=== PATIENT | female | born 1940 | race Caucasian/White ===

== ENCOUNTER → 2017-10-30 10:26 | Outpatient (CLI) | payer MEDICARE, OTHER, SELFPAY ==
--- NOTE | 2017-10-30 10:30 | BI_ITS ---
MAMMOGRAPHY - BILATERAL SCREENING 3-D ADRI SYNTHESIS REASON FOR EXAM: Female, 77 years old. Bilateral Screening 3-D tomosynthesis PERTINENT HISTORY: No significant family history. TECHNIQUE: 2-D mammograms and 3-D Adri synthesis of the breast (s) were performed. CAD was performed. COMPARISON: 10/01/2016 FINDINGS: The breast composition is composed of scattered fibroglandular density. Scattered benign calcifications are seen. No dense spiculated masses or suspicious microcalcifications are identified. No architectural distortion is identified. There is no skin thickening or retraction. There has been no significant change since the prior study. BI/SCREENING MAMM (CAD), BILAT IMPRESSION: No mammographic signs of malignancy. Routine yearly mammograms recommended. ASSESSMENT CATEGORY: BIRADS Category 2: Benign. A letter regarding these results will be sent to the patient by the facility within 30 days. FOLLOW UP RECOMMENDATION: Yearly follow up mammogram recommended. (A) Approximately 10% of breast cancers are not detected by mammography. A normal mammogram should not delay biopsy of a clinically suspicious abnormality. Electronically Signed: Adrien Marino MD at 12:19 EDT , Service support ,
--- NOTE | 2017-10-30 10:55 | BD_ITS ---
STUDY: DUAL ENERGY X-RAY ABSORPTIOMETRY / DXA REASON FOR EXAM: Female, 77 years old. Postmenopausal screening TECHNIQUE: Bone Mineral Density (BMD) measurements of lumbar spine and bilateral hips were obtained. COMPARISON: 2015 FINDINGS: Lumbar Spine (L1-L4): g/cm2 (1.194) / T-score (0.1) / Z-score (1.9) Findings are suggestive of normal bone density with a low fracture risk. Left Femur Total: g/cm2 (0.891) / T-score (-0.9) / Z-score (0.9) Left Femoral Neck: g/cm2 (0.883) / T-score (-1.1) / Z-score (0.9) Right Femur Total: g/cm2 (0.893) / T-score (-0.9) / Z-score (0.9) Right Femoral Neck: g/cm2 (0.878) / T-score (-1.2) / Z-score (0.8) The T-Scores on the most recent prior examination were: Lumbar Spine (L1-L4): There has been worsening of bone density since the previous examination. BD/Dexa Bone Density Study IMPRESSION: The patient is considered normal as outlined below according to World Marco Organization (WHO) criteria with a low fracture risk. There has been worsening of bone density since the previous examination. Reference Information: The T-score is the number of standard deviations above or below the standard which is normal for young adults at their peak bone mineral density. The World Health Organization (WHO) interprets the T-scores as follows: Above -1 Normal bone density Between -1 and -2.5 Osteopenia Equal to / or below -2.5 Osteoporosis As a practical clinical guideline, osteopenia may be graded as follows: Mild -1 through -1.5 Moderate -1.6 through -2.0 Severe -2.1 through -2.4 The Z-score is the number of standard deviations above or below age-matched controls. A Z-score of less than -1.5 would be considered abnormal. References: 1. NIH Osteoporosis and Related Bone Diseases http://www.osteo.org 2. International Society for Clinical Densitometry http://www.iscd.org 3. National Osteoporosis Foundation http://www.nof.org Electronically Signed: Adrien Marino MD at 9:55 EDT , Service support ,
== END ==
PROVIDERS: Family Provider Internal Medicine; PCP Internal Medicine; Visit Provider Internal Medicine
DX: Z12.31 Encounter for screening mammogram for malignant neoplasm of breast (principal); Z78.0 Asymptomatic menopausal state
CPT/HCPCS: 77063; 77067; 77080

== ENCOUNTER → 2018-11-21 07:06 | Outpatient (CLI) | payer MEDICARE, OTHER, SELFPAY ==
--- NOTE | 2018-11-21 07:09 | BI_ITS ---
MAMMOGRAPHY - BILATERAL SCREENING REASON FOR EXAM: Female, 78 years old. Routine annual screening examination. PERTINENT HISTORY: Non-contributory. TECHNIQUE: Digital bilateral breast adri (3D mammographic acquisition) in the CC and MLO projections. 2-D mediolateral oblique (MLO) and craniocaudad (CC) views of both breasts were obtained. CAD: Full Field Digital Mammography with Computer Added Detection was performed. COMPARISON: Comparison is made with prior examination dated October 30, 2017 and October 01, 2016 FINDINGS: Breast Composition: There are scattered areas of fibroglandular density. There are no dominant masses or suspicious calcifications. Stable small benign appearing bilateral axillary lymph nodes. No other significant abnormalities are identified. There has been no significant change since the prior study. BI/SCREEN MAMM (CAD) W/ADRI BILAT IMPRESSION: Stable bilateral screening mammogram. Yearly follow-up mammogram recommended. (A) ASSESSMENT CATEGORY: BIRADS Category 2: Benign. A letter regarding these results will be sent to the patient by the facility within 30 days. Approximately 10% of breast cancers are not detected by mammography. A normal mammogram should not delay biopsy of a clinically suspicious abnormality. [id number] Electronically Signed: Gary Green, at 9:29 EDT , Service support ,
== END ==
PROVIDERS: Family Provider Internal Medicine; PCP Internal Medicine; Referring Provider Internal Medicine; Visit Provider Internal Medicine
DX: Z12.31 Encounter for screening mammogram for malignant neoplasm of breast (principal)
CPT/HCPCS: 77063; 77067

== ENCOUNTER → 2019-12-17 12:27 | Outpatient (CLI) | payer MEDICARE, OTHER, SELFPAY ==
--- NOTE | 2019-12-17 12:31 | BI_ITS ---
MAMMOGRAPHY - BILATERAL SCREENING REASON FOR EXAM: Female, 79 years old. Routine annual screening examination. PERTINENT HISTORY: Non-contributory. TECHNIQUE: Digital bilateral breast adri (3D mammographic acquisition) in the CC and MLO projections. 2-D mediolateral oblique (MLO) and craniocaudad (CC) views of both breasts were obtained. CAD: Full Field Digital Mammography with Computer Added Detection was performed. COMPARISON: Comparison is made with prior examination dated 11/21/2018 and 10/30/2017. FINDINGS: Breast Composition: There are scattered areas of fibroglandular density. There are no dominant masses or suspicious calcifications. Stable small benign appearing bilateral axillary lymph nodes. No other significant abnormalities are identified. There has been no significant change since the prior study. BI/SCREEN MAMM (CAD) W/ADRI BILAT IMPRESSION: Stable bilateral screening mammogram. Yearly follow-up mammogram recommended. (A) ASSESSMENT CATEGORY: BIRADS Category 2: Benign. A letter regarding these results will be sent to the patient by the facility within 30 days. Approximately 10% of breast cancers are not detected by mammography. A normal mammogram should not delay biopsy of a clinically suspicious abnormality. [id number] Electronically Signed: Gary Green, at 13:44 EDT , Service support ,
--- NOTE | 2019-12-17 12:36 | BD_ITS ---
STUDY: DUAL ENERGY X-RAY ABSORPTIOMETRY / DXA REASON FOR EXAM: Female, 79 years old. 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 COMPARISON: Comparison is made with prior study dated 10/30/2017. FINDINGS: Lumbar Spine (L1-L4): g/cm2 (1.112) / T-score (-0.6) / Z-score (1.2) Findings are suggestive of normal bone density with a low fracture risk. Increased thoracic kyphosis. Left Femur Total: g/cm2 (0.813) / T-score (-1.5) / Z-score (0.4) Left Femoral Neck: g/cm2 (0.824) / T-score (-1.5) / Z-score (0.5) Right Femur Total: g/cm2 (0.836) / T-score (-1.4) / Z-score (0.6) Right Femoral Neck: g/cm2 (0.847) / T-score (-1.4) / Z-score (0.7) The T-Scores on the most recent prior examination were: Lumbar Spine (L1-L4): There has been worsening of bone density since the previous examination. Left Femur Total: which represents a worsening of 8.8%. Right Femur Total: which represents a worsening of 6.4%. BD/Dexa Bone Density Study IMPRESSION: The patient is considered osteopenic as outlined below according to World Marco Organization (WHO) criteria with a moderate fracture risk. There has been worsening of bone density since the previous examination. Reference Information: The T-score is the number of standard deviations above or below the standard which is normal for young adults at their peak bone mineral density. The World Health Organization (WHO) interprets the T-scores as follows: Above -1 Normal bone density Between -1 and -2.5 Osteopenia Equal to / or below -2.5 Osteoporosis As a practical clinical guideline, osteopenia may be graded as follows: Mild -1 through -1.5 Moderate -1.6 through -2.0 Severe -2.1 through -2.4 The Z-score is the number of standard deviations above or below age-matched controls. A Z-score of less than -1.5 would be considered abnormal. References: 1. NIH Osteoporosis and Related Bone Diseases http://www.osteo.org 2. International Society for Clinical Densitometry http://www.iscd.org 3. National Osteoporosis Foundation http://www.nof.org Electronically Signed: Gary Green, at 15:00 EDT , Service support ,
== END ==
PROVIDERS: PCP Internal Medicine; Referring Provider Internal Medicine; Visit Provider Internal Medicine
DX: Z12.31 Encounter for screening mammogram for malignant neoplasm of breast (principal); Z78.0 Asymptomatic menopausal state; M85.80 Other specified disorders of bone density and structure, unspecified site
CPT/HCPCS: 77063; 77067; 77080

== ENCOUNTER 2020-06-06 12:25 | Outpatient (RCR) | payer MEDICARE, OTHER, SELFPAY | END 2020-06-06 23:59 | LOC: IMMUN 12:25 | PROVIDERS: PCP Internal Medicine; Visit Provider Family Medicine | DX: Z23 Encounter for immunization (principal) | CPT/HCPCS: 0011A; 0012A ==

== ENCOUNTER → 2020-12-19 07:05 | Outpatient (CLI) | payer MEDICARE, OTHER, SELFPAY ==
--- NOTE | 2020-12-19 07:09 | BI_ITS ---
MAMMOGRAPHY - BILATERAL SCREENING REASON FOR EXAM: Female, 80 years old. Routine annual screening examination. PERTINENT HISTORY: Non-contributory. Chronic inversion of both nipples. TECHNIQUE: Digital bilateral breast adri (3D mammographic acquisition) in the CC and MLO projections. 2-D mediolateral oblique (MLO) and craniocaudad (CC) views of both breasts were obtained. CAD: Full Field Digital Mammography with Computer Added Detection was performed. COMPARISON: Comparison is made with prior study dated 12/17/2019 and 11/21/2018. FINDINGS: Breast Composition: There are scattered areas of fibroglandular density. There are no dominant masses or suspicious calcifications. No other significant abnormalities are identified. There has been no significant change since the prior study. BI/SCRN MAMM (CAD)W/ADRI BILAT IMPRESSION: Stable bilateral screening mammogram. Yearly follow-up mammogram recommended. (A) ASSESSMENT CATEGORY: BIRADS Category 1: Negative. A letter regarding these results will be sent to the patient by the facility within 30 days. Approximately 10% of breast cancers are not detected by mammography. A normal mammogram should not delay biopsy of a clinically suspicious abnormality. [id number] Electronically Signed: Gary Green MD at 9:00 EDT , Service support ,
== END ==
PROVIDERS: PCP Internal Medicine; Referring Provider Internal Medicine; Visit Provider Internal Medicine
DX: Z12.31 Encounter for screening mammogram for malignant neoplasm of breast (principal)
CPT/HCPCS: 77063; 77067

== ENCOUNTER → 2022-01-09 | Outpatient (CLI) | payer MEDICARE, OTHER, SELFPAY ==
--- NOTE | 2022-01-09 12:23 | BI_ITS ---
MAMMOGRAPHY - BILATERAL SCREENING REASON FOR EXAM: Female, 81 years old. Routine annual screening examination. PERTINENT HISTORY: Non-contributory. Chronic bilateral nipple inversion. TECHNIQUE: Digital bilateral breast adri (3D mammographic acquisition) in the CC and MLO projections. 2-D mediolateral oblique (MLO) and craniocaudad (CC) views of both breasts were obtained. CAD: Full Field Digital Mammography with Computer Added Detection was performed. COMPARISON: Comparison is made with prior study dated 12/19/2020 and 12/17/2019. FINDINGS: Breast Composition: There are scattered areas of fibroglandular density. There are no dominant masses or suspicious calcifications. No other significant abnormalities are identified. There has been no significant change since the prior study. BI/SCRN MAMM (CAD)W/ADRI BILAT IMPRESSION: Stable bilateral screening mammogram. Yearly follow-up mammogram recommended. (A) ASSESSMENT CATEGORY: BIRADS Category 1: Negative. A letter regarding these results will be sent to the patient by the facility within 30 days. Approximately 10% of breast cancers are not detected by mammography. A normal mammogram should not delay biopsy of a clinically suspicious abnormality. [id number] Electronically Signed: Gary Green MD at 13:33 EDT ,
--- NOTE | 2022-01-09 12:30 | BD_ITS ---
STUDY: DUAL ENERGY X-RAY ABSORPTIOMETRY / DXA REASON FOR EXAM: Female, 81 years old. [id number]. Patient is postmenopausal. TECHNIQUE: Bone Mineral Density (BMD) measurements of lumbar spine and bilateral hips were obtained. COMPARISON: Comparison is made with prior study 12/17/2019. FINDINGS: Lumbar Spine (L1-L4): g/cm2 (0.832) / T-score (-1.7) / Z-score (0.9) Findings are suggestive of osteopenia with a moderate fracture risk. Left Femur Total: g/cm2 (0.734) / T-score (-1.7) / Z-score (0.4) Left Femoral Neck: g/cm2 (0.672) / T-score (-1.6) / Z-score (0.7) Right Femur Total: g/cm2 (0.728) / T-score (-1.8) / Z-score (0.3) Right Femoral Neck: g/cm2 (0.632) / T-score (-2.0) / Z-score (0.4) The T-Scores on the most recent prior examination were: Lumbar Spine (L1-L4): There has been worsening of bone density since the previous examination. Left Femur Total: which represents a worsening of 2.4%. Right Femur Total: which represents a worsening of 6.1%. BD/Dexa Bone Density Study IMPRESSION: The patient is considered osteopenic as outlined below according to World Marco Organization (WHO) criteria with a moderate fracture risk. There has been worsening of bone density since the previous examination. Reference Information: The T-score is the number of standard deviations above or below the standard which is normal for young adults at their peak bone mineral density. The World Health Organization (WHO) interprets the T-scores as follows: Above -1 Normal bone density Between -1 and -2.5 Osteopenia Equal to / or below -2.5 Osteoporosis As a practical clinical guideline, osteopenia may be graded as follows: Mild -1 through -1.5 Moderate -1.6 through -2.0 Severe -2.1 through -2.4 The Z-score is the number of standard deviations above or below age-matched controls. A Z-score of less than -1.5 would be considered abnormal. References: 1. NIH Osteoporosis and Related Bone Diseases www osteo.org 2. International Society for Clinical Densitometry www iscd.org 3. National Osteoporosis Foundation www nof.org Electronically Signed: Gary Green MD at 10:37 EDT ,
== END | disposition home or self-care (01) ==
LOC: OPBD 12:20
PROVIDERS: PCP Internal Medicine; Visit Provider Internal Medicine
DX: Z12.31 Encounter for screening mammogram for malignant neoplasm of breast (principal); N64.59 Other signs and symptoms in breast; Z78.0 Asymptomatic menopausal state
CPT/HCPCS: 77063; 77067; 77080

== ENCOUNTER → 2022-06-04 | Outpatient (CLI) | payer MEDICARE, OTHER, SELFPAY ==
--- NOTE | 2022-06-04 07:48 | US_ITS ---
STUDY: ABDOMINAL ULTRASOUND - ELASTOGRAPHY REASON FOR VISIT: Female, 82 years old. Fatty infiltration of the liver. TECHNIQUE: Liver stiffness measurements were obtained on a [employer] [place] RS 85 ultrasound machine using a CA 1-7 probe following the SRU guidelines. 3 measurements were obtained using a 2-D-SWE method. The IQR/M was 23 % suggesting a quality data set. TECHNICAL QUALITY: Adequate. COMPARISON: None. FINDINGS: Liver: Comparison is made with prior study done earlier in the day. Median liver stiffness measured 6.4 kPa. US/Elastography Parenchyma/Organ IMPRESSION: Liver stiffness measures 6.4 kPa compatible with F2-F3 (Mild to moderate liver fibrosis) Metavir score. Electronically Signed: Gary Green MD at 14:28 EST ,
--- NOTE | 2022-06-04 07:48 | US_ITS ---
STUDY: ABDOMINAL ULTRASOUND - RIGHT UPPER QUADRANT REASON FOR VISIT: Female, 82 years old FATTY LIVER TECHNIQUE: Ultrasound evaluation of the right upper quadrant was performed with real-time and static fisher-scale imaging. TECHNICAL QUALITY: Adequate. COMPARISON: Comparison is made with prior study dated 11/05/2012. FINDINGS: Liver: The liver measures 11.1 cm. There is normal echogenicity of the liver. The bile ducts are within normal limits. There is hepatic color flow. The direction of portal flow is hepatopetal. There is a 7 mm x 8 mm x 10 mm cyst in the left lobe. Gallbladder: Normal distended gallbladder. The gallbladder wall measures 1.0 mm. There is a negative sonographic Arambula''s sign. There is no pericholecystic fluid. There are no gallstones. Common Bile Duct (C.B.D.): The common bile duct measures 2.1 mm. Pancreas: Normal size of the head, body and tail of the pancreas. There is normal echogenicity of the pancreas. There is no demonstrated pancreatic mass or cyst. Right Kidney: Normal size of the right kidney. The right kidney measures 8.6 cm x 4.1 cm x 4 cm. Normal renal cortex. The right cortex measures 1.2 cm. There is no demonstrated renal mass or cyst. There is no right hydronephrosis. US/Liver IMPRESSION: Normal right upper quadrant ultrasound examination. 8 mm x 10 mm x 7 mm cyst in the left lobe of the liver. Electronically Signed: Gary Green MD at 12:51 EST ,
== END | disposition home or self-care (01) ==
LOC: US 07:45
PROVIDERS: PCP Internal Medicine; Visit Provider Internal Medicine
DX: K76.0 Fatty (change of) liver, not elsewhere classified (principal)
CPT/HCPCS: 76705; 76981

== ENCOUNTER 2022-10-27 12:08 | Inpatient (IN) | payer MEDICARE, OTHER, SELFPAY ==
[2022-10-27] VITALS (7 sets, daily range): BP systolic 115–155; BP diastolic 67–86; PULSE 60–84; RESP 12–18; TEMP 36.2–36.8; O2SAT 96–99; BMI 24.5; BMI 23.1
--- NOTE | 2022-10-27 12:39 | EKG12_ITS ---
Test Reason : WEAKNESS/DIZZY Blood Pressure : / mmHG Vent. Rate : 070 BPM Atrial Rate : 070 BPM P-R Int : 160 ms QRS Dur : 076 ms QT Int : 416 ms P-R-T Axes : 048 -44 033 degrees QTc Int : 449 ms Normal sinus rhythm Left axis deviation Abnormal ECG Confirmed by BROOKE CORDERO, RICARDO ([id number]), editor trade journal AC ARREDONDO ([id number]) on 10/29/2022 12:32:38 PM Referred By: AMY/DEYVI Confirmed By:RICARDO COX MD
--- NOTE | 2022-10-27 12:39 | RAD_ITS ---
STUDY: X-RAY CHEST REASON FOR EXAM: Female, 82 years old. Chest pain TECHNIQUE: Single AP portable view of the chest. COMPARISON: None. FINDINGS: The lungs are clear and expanded. There is no demonstrated pleural abnormality. Normal size heart. Normal mediastinum and sharda. Normal visualized pulmonary arteries. Normal visualized aortic arch and descending thoracic aorta. There are diffuse degenerative changes of the visualized thoracic spine. Normal visualized ribs, clavicles, and shoulders. There is no demonstrated abnormality of the visualized soft tissue structures of the upper abdomen. RAD/Chest 1 View (Portable) IMPRESSION: No acute pulmonary process Electronically Signed: Adrien Marino MD at 13:45 EDT ,
--- NOTE | 2022-10-27 12:41 | EDS_ITS ---
HPI History of Present Illness Chief Complaint: Dizziness Informant: patient Narrative Narrative: Patient having episodes of lightheadedness for the past month or 2. She states she is having episodes every day. They are usually brief. When she feels lightheaded, she oftentimes feels like she is going to pass out, it makes her feel little out of breath, and weak all over. 2 weeks ago, she actually passed out from 1 of these episodes. She did not injure herself. This is all new for her. She has had a couple episodes of chest discomfort, she just describes them as a pain, they occurred at nighttime and the last time it occurred was a couple weeks ago, she does not usually have any other chest discomfort when these episodes occur. She has had an occasional discomfort into the right lateral neck with some of these episodes but no chest discomfort simultaneously. No leg pain or swelling recently. No orthopnea. No fevers, chills, cough, or other illness. No recent travel out of the area. No history of DVT or PE that she knows of. She takes blood pressure medication and she has no other medical issues. In the ER here today, this is the first time she is presented for medical care for any of this. [facility] Medical History (Updated 10/27/22 @ 14:[address] Ajay Bernabe MD) HTN (hypertension) Allergy/AdvReac Type Severity Reaction Status Date / Time No Known Allergies Allergy Verified 10/27/22 12:09 Social History Smoking Status: Never smoker [facility] ED Constitutional Constitutional ED: Reports weakness; Denies chills or fever(s) Eyes Eyes: Denies change in vision or diplopia ENT ENT ED: Denies rhinorrhea or sore throat Cardiovascular Cardiovascular: Reports lightheadedness and syncope; Denies chest pain, claudication, leg edema, orthopnea, orthostatic symptoms, palpitations or racing heartbeat Respiratory/Chest Respiratory/Chest: Reports dyspnea; Denies cough or orthopnea Gastrointestinal Gastrointestinal: Denies abdominal pain, diarrhea, nausea or vomiting Genitourinary Genitourinary ED: Denies dysuria or hematuria Musculoskeletal Musculoskeletal: Denies back pain or neck pain Integumentary Denies abscess or rash Neurologic Neurologic: Denies headache(s), paresthesias or weakness Psychiatric Psychiatric: Denies anxiety or suicidal thoughts EXAM Physical Exam Const Vital Signs: 10/27/22 12:09 10/27/22 12:49 10/27/22 15:00 Temperature 97.4 F L 97.2 F L Temperature Source Temporal Oral Pulse Rate 84 76 Respiratory Rate 12 15 Blood Pressure 154/86 H 139/71 H Blood Pressure Mean 108 93 Pulse Ox 98 97 96 Oxygen Delivery Method Room Air Room Air Room Air Positive well nourished and well developed General Appearance ED: well developed and NAD HEENT Reports moist mucous membranes normocephalic and atraumatic Eyes PERRL and EOMs intact bilaterally Neck full ROM, supple and no JVD Neck Narrative: No carotid bruits bilaterally Chest Wall inspection of chest normal and palpation of chest normal Resp normal respiratory effort and clear to auscultation bilaterally Cardio regular rate, regular rhythm and no murmurs Rate: Negative for bradycardia or tachycardic GI non-tender and non-distended Auscultation: normoactive bowel sounds Palpation: soft Back/Spine no CVA tenderness General Back: other FROM Extremity normal to inspection and no calf tenderness General Extremety ED: Negative for edema, pulses abnormal or tenderness General Extremity: Negative for edema or pulses abnormal Neuro oriented x3, CN's II-XII intact bilaterally and no sensory deficits noted Sensorium / Orientation: awake and alert Motor Exam: strength 5/5 throughout Skin no rashes or lesions noted and no wounds MDM MDM MDM Narrative Medical decision making narrative: Patient was placed on the monitor she had no episodes or symptoms while being monitored here in the emergency department. Her work-up is nonspecific, negative for acute coronary syndrome although she is a left axis and no old 1 to compare to, her D-dimer is 0.51, when adjusted for her age, this is basically negative and rules out pulmonary embolus acutely. Her TSH is within normal limits. Her vital signs are stable. I recommend admission since she is having frequent symptoms and has had syncopal episode with these for further evaluation on the monitor. My concern is that this is potentially cardiac specially given her age. Lab Data Attestation: I reviewed the patient's lab results. Labs: Laboratory Results - last 24 hr 10/27/22 13:06 WBC 2.4 L RBC 4.54 Hgb 13.6 Hct 41.6 MCV 91.6 MCH 30.0 MCHC 32.7 RDW Std Deviation 47.9 H RDW Coeff of Leatha 14.1 Plt Count 180 MPV 9.8 Immature Gran % (Auto) 0.000 Neut % (Auto) 43.3 L Lymph % (Auto) 44.7 H [place] % (Auto) 9.8 Eos % (Auto) 1.3 Baso % (Auto) 0.9 Absolute Neuts (auto) 1.0 L Absolute Lymphs (auto) 1.05 Nucleated RBC % 0 D-Dimer Quant (PE/DVT) 0.51 H* Sodium 140 Potassium 3.8 Chloride 108 H Carbon Dioxide 27.0 Anion Gap 5 BUN 14 Creatinine 0.92 Estim Creat Clear Calc 37.93 Est GFR (MDRD) Af Amer 76 Est GFR (MDRD) Non-Af 63 BUN/Creatinine Ratio 15.3 Glucose 99 Calcium 10.4 H Troponin I High Sens 31 TSH 2.74 Radiography Chest X-Ray - ED: 1 View, Read by ED Physician, No Acute Disease and No Infiltrates Diagnostic Testing: Clinical Impression(s) from Imaging Studies Chest X-Ray 10/27/22 12:39 IMPRESSION: No acute pulmonary process Electronically Signed: Adrien Marino MD at 13:45 EDT , Rhythm Strip Rhythm Strip: Sinus Rhythm Rate: 70 Ectopy: PVC(s) and PAC(s) EKG Initial EKG: Attestation: I personally reviewed and interpreted this EKG as follows: Interpretation: Sinus Rhythm, No Acute Injury Pattern and LAFB Prior EKG tracings: not available for review Prior: No Prior Management Discussion w/another healthcare provider: Hospitalist Discharge Plan Dx/Rx/DC Orders Clinical Impression: Near syncope Disposition Disposition: Acute Care [facility]
[2022-10-27] MEDS: Aspirin 81 MG TAB.CHEW 162 MG PO (13:15)
[2022-10-27 13:16] LABS: Absolute Lymphocyte Count 1.05 X10^3/uL (0.83-4.51); Basophil# 0.02 X10^3/uL; Basophil% 0.9 % (0-1); Eosinophil# 0.03 X10^3/uL; Eosinophils% 1.3 % (0-5); Hematocrit 41.6 % (37-47); Hemoglobin 13.6 g/dL (12.0-15.0); Lymphocyte # 1.05 X10^3/ul (0.83-4.51); Lymphocyte % 44.7 % (19-41); Mean Corp Hgb Conc 32.7 g/dL (32-36); Mean Corpuscular Volume 91.6 fL (81-99); Mean Platelet Vol. 9.8 fl (6.2-12.0); Monocyte# 0.23 X10^3/uL; Monocyte% 9.8 % (0-10); NRBC Flagged by Analyzer 0 % (0-5); Neutrophil # 1.02 X10^3/uL (2.7-7.7); Neutrophil % 43.3 % (47-70); Platelet Count 180 K/mm3 (150-450); RBC Distribution Width CV 14.1 % (11.6-14.6); RBC Distribution Width SD 47.9 fl (35.1-43.9); Red Blood Count 4.54 M/mm3 (4.2-5.4); White Blood Count 2.4 K/mm3 (4.4-11.0)
[2022-10-27 13:29] LABS: D-Dimer Quantitative (DVT/PE) 0.51 FEU/ug/m (0.27-0.49)
[2022-10-27 13:37] LABS: Anion Gap 5 (5-15); BUN 14 mg/dL (7-18); BUN/Creat Ratio 15.3 RATIO (10-20); Calcium,Total 10.4 mg/dL (8.5-10.1); Chloride 108 mmol/L (98-107); Creatinine, Serum 0.92 mg/dL (0.55-1.02); EST Glomerular Filtration Rate 63 mL/min (>60); Est Glom Filt Rate - Afr Amer 76 mL/min (>60); Estimated Creatinine Clearance 37.93 ml/min; Glucose 99 mg/dL (74-106); Potassium 3.8 mmol/L (3.5-5.1); Sodium Level 140 mmol/L (136-145); Thyroid Stim Hormone (TSH) 2.74 uIU/mL (0.358-3.74); Troponin-I HS 31 pg/mL (3.0-54.0)
--- NOTE | 2022-10-27 15:01 | NURSING ---
DR CHOU FOR DR REYES
--- NOTE | 2022-10-27 15:12 | NURSING ---
PCU SYNCOPE/NEAR SYNCOPE CHOU
--- NOTE | 2022-10-27 15:27 | PCM.HP.STD ---
HPI - General General Date of Admission: 10/27/22 Date of Service: 10/27/22 Chief Complaint: Presycnope/syncope HPI Narrative MOE STACY, is an 82-year-old female history of hypertension presented to [facility] 10/27/2022 with intermittent episodes of dizziness and lightheadedness for the past 2 months and has episodes every day. They are usually brief and she feels lightheaded and often like she is going to pass out and she will feel little bit out of breath and weak all over. 2 weeks ago she actually did have a syncopal episode from one of them, did not injure herself. Has had a couple episodes of chest discomfort that occurred at nighttime with last episode a couple weeks ago and are not associated with these episodes. Occasionally she will have some right lateral neck discomfort but this also was not associated with either the chest pain or the dizzy episodes. No history of DVT or PE, no leg pain or swelling, no infectious signs or symptoms. EKG in ED nonspecific, troponin 31, TSH 2.74. Creatinine 0.92, unclear baseline but no reports of difficulty maintaining hydration. Did have calcium of 10.4 but otherwise work-up benign. Given the frequency of episodes with syncopal episode and concern for cardiac etiology hospitalist consulted for admission. Patient seen at bedside with present. Patient very poor historian and gives contradictory symptoms and symptom timing however essentially seems that she has not been feeling well for 2 months and has intermittent episodes of presyncope the last minutes possibly multiple episodes throughout the day, she thinks they are usually when standing but she cannot say definitively. Had a syncopal episode 2 weeks ago when she was talking with her friend in the hot sun and she reports she had a prodrome felt lightheaded and then woke up shortly after with her friend taking her inside to eat. She also reports she has had a dry hacking cough for many months and had a stomachache for 1 day a week or 2 ago. Also possibly had some chest pain that she could not describe in the center of her chest which may have happened a couple weeks ago for said it was like an aching and then said it felt like somebody lightly stabbed her with a needle and will just happen for a second at a time but is not having this presently. Also later said she intermittently gets nauseous. Patient unable to be any more specific with her symptoms. Denies taking any substances or supplements other than a B complex. [facility] Medical History (Updated 10/27/22 @ 15:[address] Kamla Banuelos MD) HTN (hypertension) Home Medications amlodipine 5 mg tablet 5 mg PO DAILY 10/27/22 [History Last Taken 10/27/22] losartan 100 mg tablet 100 mg PO DAILY 10/27/22 [History Last Taken 10/27/22] Allergy/AdvReac Type Severity Reaction Status Date / Time No Known Allergies Allergy Verified 10/27/22 12:09 Social History Smoking Status: Never smoker ROS ROS Narrative General: Denies fever/chills HENT: Denies headache, denies stuffy nose, denies sore throat EYES: Denies changes in vision Resp: Has had a cough over period of months, denies shortness of breath Cardiac: Has possibly had a couple episodes of chest pain occasionally most recently couple weeks ago GI: Intermittent nausea, 1 episode of abdominal pain a couple weeks ago : Frequently urinates but denies any other changes Extremity: Denies swelling MSK: Feels generally weak Neuro: Denies any numbness/tingling Heme: Denies any bleeding or bruising Skin: Denies rashes Psychiatric: No complaints voiced Vital Signs Vital Signs Vital Signs: 10/27/22 12:09 10/27/22 12:49 10/27/22 15:00 Temperature 97.4 F L 97.2 F L Temperature Source Temporal Oral Pulse Rate 84 76 Respiratory Rate 12 15 Blood Pressure 154/86 H 139/71 H Blood Pressure Mean 108 93 Pulse Ox 98 97 96 Oxygen Delivery Method Room Air Room Air Room Air 10/27/22 15:06 Temperature 97.6 F L Temperature Source Temporal Pulse Rate 60 Respiratory Rate 16 Blood Pressure 139/71 H Blood Pressure Mean 93 Pulse Ox 97 Oxygen Delivery Method Room Air Weight Weight: 60.963 kg Body Mass Index (BMI) 24.5 Physical Exam Narrative General: Alert, no apparent distress, poor historian HEENT: Atraumatic, normocephalic Eyes: Anicteric, normal conjunctiva, extraocular movements grossly intact Neck: Supple Respiratory: Clear to auscultation bilaterally, normal respiratory effort Cardiovascular: Regular rate and rhythm GI: Soft, nontender, nondistended Extremities: No edema Musculoskeletal: Moving all extremities Neuro: No overt focal neurological deficits Skin: No rashes appreciated Psych: Cooperative Results Lab / Micro Data 10/27/22 13:06 10/27/22 13:06 Labs: Laboratory Results - last 24 hr 10/27/22 13:06: WBC 2.4 L, RBC 4.54, Hgb 13.6, Hct 41.6, MCV 91.6, MCH 30.0, MCHC 32.7, RDW Std Deviation 47.9 H, RDW Coeff of Leatha 14.1, Plt Count 180, MPV 9.8, Immature Gran % (Auto) 0.000, Neut % (Auto) 43.3 L, Lymph % (Auto) 44.7 H, [place] % (Auto) 9.8, Eos % (Auto) 1.3, Baso % (Auto) 0.9, Absolute Neuts (auto) 1.0 L, Absolute Lymphs (auto) 1.05, Nucleated RBC % 0, D-Dimer Quant (PE/DVT) 0.51 H*, Sodium 140, Potassium 3.8, Chloride 108 H, Carbon Dioxide 27.0, Anion Gap 5, BUN 14, Creatinine 0.92, Estim Creat Clear Calc 37.93, Est GFR (MDRD) Af Amer 76, Est GFR (MDRD) Non-Af 63, BUN/Creatinine Ratio 15.3, Glucose 99, Calcium 10.4 H, Troponin I High Sens 31, TSH 2.74 Rhythm Strip Rhythm Strip: Sinus Rhythm Rate: 70 Ectopy: PVC(s) and PAC(s) Radiology Impression Chest X-Ray 10/27/22 12:39 IMPRESSION: No acute pulmonary process Electronically Signed: Adrien Marino MD at 13:45 EDT , Assessment & Plan Assessment/Plan (1) Near syncope: (2) HTN (hypertension): (3) Syncope: PLAN: Plan #Syncope/near syncope- -admit to telemetry -EKG normal sinus rhythm, QTc 449 with left axis deviation -Orthostats ordered -Gentle hydration -Obtain echocardiogram -Troponin within normal limits, D-dimer 0.51 which is appropriate when adjusted for age -TSH 2.74 with a troponin of 31 -We will also obtain CT head and UA -Patient belatedly reported occasional dressed discomfort but had very difficult time with timeline or symptom description however did not sound worrisome for ACS and not presently having symptoms, monitor on telemetry #History of hypertension -We will hold amlodipine and losartan pending orthostats and clinical status #Hypercalcemia -Certainly could be cause of some of the vague symptoms -Calcium 10.4, will order liver panel and adjust this for albumin -PTH, vitamin D, Phos ordered -Gentle hydration #DVT ppx: Lovenox subcu Kamla Banuelos MD Time spent in the patient's overall evaluation,decision-making process, review of diagnostic data, adjustment of management, discussion with other providers, nursing nursing and ancillary staff involved in patient's care documentation, 56 minutes Charges/Coding Visit Charges Inpatient E&M: 71653 Init Hosp L2
--- NOTE | 2022-10-27 15:52 | CT_ITS ---
STUDY: CT BRAIN WITHOUT CONTRAST REASON FOR EXAM: Female, 82 years old. syncope, dizziness RADIATION DOSAGE (If Supplied By Facility): CTDIvol = ( 44.99 ) mGy, DLP = ( 745.49 ) mGycm TECHNIQUE: Transaxial CT imaging of the brain was performed without administration of intravenous contrast material. Individualized dose optimization techniques were used for this CT. COMPARISON: No relevant priors. FINDINGS: Normal soft tissue structures. Normal calvarium. Normal size ventricles and extra-axial spaces for the patient''s age. Normal white matter tracts of the cerebral hemispheres. Normal basal ganglia and thalami. Normal brainstem. Normal cerebellum. There is no intracranial hemorrhage. There are no findings of an acute ischemic infarction. Normal visualized paranasal sinuses. CT/Brain/Head without Contrast IMPRESSION: Normal unenhanced CT scan of the brain. Electronically Signed: Javier Greer MD at 17:40 EDT ,
--- NOTE | 2022-10-27 15:52 | ECHOD_ITS ---
Reason For Study: SYNCOPE Procedure This was a 2D Doppler, Color Flow transthoracic echocardiogram. Exam performed portable in patient room. Left Ventricle Normal LV size. Left ventricular systolic function is normal. The estimated ejection fraction is 60 %. Stage 1 diastolic dysfunction. No regional wall motion abnormalities noted. Right Ventricle Normal RV size. Normal systolic function. Atria Normal left atrium. Normal right atrium. Mitral Valve Normal mitral valve. Tricuspid Valve Normal tricuspid valve. Mild (1+) tricuspid valve insufficiency. Pulmonary artery systolic pressure is 36 mmHg. Aortic Valve Normal aortic valve. Pulmonic Valve Normal pulmonic valve. Great Vessels Normal aortic root. The pulmonary artery is normal size. Normal inferior vena cava. Pericardium/Pleural No pericardial effusion. MMode/2D Measurements & Calculations LVIDd: 4.6 cm IVSd: 0.83 cm Ao root diam: 2.8 cm LVIDs: 3.6 cm LVPWd: 0.79 cm RVDd: 2.5 cm FS: 23.3 % LAV(MOD-bp): 40.9 ml LVAd ap4: 23.2 cm2 SV(MOD-sp4): 37.1 ml LAV(MOD-bp) Indexed: 25.4 ml/m2 LVLd ap4: 6.7 cm LAV(MOD-sp2): 43.0 ml EDV(MOD-sp4): 67.9 ml LAV(MOD-sp4): 32.0 ml EDV(sp4-el): 68.2 ml LVAs ap4: 14.1 cm2 LVLs ap4: 5.8 cm ESV(MOD-sp4): 30.8 ml ESV(sp4-el): 29.0 ml EF(MOD-sp4): 54.6 % EF(sp4-el): 57.4 % SV(sp4-el): 39.1 ml LA A4 area: 14.2 cm2 LA dimension(2D): 2.7 cm RA A4 area: 10.3 cm2 TAPSE: 1.4 cm Time Measurements MV dec time: 0.23 sec Doppler Measurements & Calculations MV E max zackery: 75.5 cm/sec Lat Peak E' Zackery: 10.2 cm/sec Med Peak E' Zackery: 8.9 cm/sec MV A max zackery: 104.6 cm/sec E/E' lat: 7.4 E/E' med: 8.5 MV E/A: 0.72 MV V2 max: 119.5 cm/sec Ao V2 max: 126.3 cm/sec MV max P.7 mmHg MV dec slope: 338.9 cm/sec2 Ao max P.4 mmHg MV V2 mean: 70.1 cm/sec Ao V2 mean: 84.3 cm/sec MV mean P.2 mmHg Ao mean P.3 mmHg MV V2 VTI: 36.8 cm Ao V2 VTI: 31.1 cm AV (velocity ratio): 0.83 LV V1 max: 94.8 cm/sec MR max zackery: 413.2 cm/sec TR max zackery: 286.9 cm/sec LV V1 max P.6 mmHg MR max P.3 mmHg TR max P.9 mmHg LV V1 mean P.2 mmHg LV V1 mean: 70.5 cm/sec LV V1 VTI: 25.8 cm ECHO/Echo Complete Interpretation Summary Normal LV size. Left ventricular systolic function is normal. The estimated ejection fraction is 60 %. Stage 1 diastolic dysfunction. Pulmonary artery systolic pressure is 36 mmHg. Ordering Physician: Kamla Banuelos Referring Physician: Breanna David M.D. Performed By: Noa Tabor RCS
[2022-10-27] MEDS: 0.9% Normal Saline 1,000 ML 75 ML IV (17:56)
[2022-10-27 18:02] LABS: PTHIN 129.6 pg/mL (18.4-80.1)
[2022-10-27 20:22] LABS: Bacteria 0 SEEN /hpf (None Seen); Mucous, Urine 0 SEEN /hpf (<or=2+); Red Blood Cells-Urine 0 SEEN /hpf (0-5); Squamous Epithelial Cells - UA 0 SEEN /hpf (5-10); White Blood Cells 0 SEEN /hpf (0-5)
[2022-10-27 20:26] LABS: Color, Urine Yellow (Yellow); Glucose, Dipstick Normal (Normal); Ketone-Dipstick 5 mg/dl (Negative); Leukocyte Esterase-Dipstick Negative /ul (Negative); Nitrite-Dipstick Negative (Negative); Occult Blood-Urine Negative /ul (Negative); Protein-Dipstick Negative (Negative); Urine Bilirubin Dipstick Negative (Negative); Urine Clarity Clear (Clear); Urine Urobilinogen Normal (Normal)
[2022-10-28 03:28] VITALS: BP 112/56; PULSE 61; RESP 16; TEMP 36.6; O2SAT 98
[2022-10-28 06:16] LABS: Absolute Lymphocyte Count 1.21 X10^3/uL (0.83-4.51); Basophil# 0.02 X10^3/uL; Basophil% 0.8 % (0-1); Eosinophil# 0.05 X10^3/uL; Hematocrit 39.3 % (37-47); Lymphocyte # 1.21 X10^3/ul (0.83-4.51); Lymphocyte % 47.5 % (19-41); Mean Corp Hgb Conc 33.1 g/dL (32-36); Mean Corpuscular Hgb 30.4 pg (27.0-32.0); Mean Corpuscular Volume 91.8 fL (81-99); Mean Platelet Vol. 10.3 fl (6.2-12.0); Monocyte% 11.8 % (0-10); NRBC Flagged by Analyzer 0 % (0-5); Neutrophil # 0.97 X10^3/uL (2.7-7.7); Neutrophil % 37.9 % (47-70); POSITIVE DIFFERENTIAL YES; Platelet Count 166 K/mm3 (150-450); RBC Distribution Width CV 14.1 % (11.6-14.6); RBC Distribution Width SD 47.9 fl (35.1-43.9); Red Blood Count 4.28 M/mm3 (4.2-5.4); White Blood Count 2.6 K/mm3 (4.4-11.0)
[2022-10-28 06:19] LABS: Differential Indicated SCAN CRITERIA MET
[2022-10-28 06:27] LABS: International Normalized Ratio 0.9; Prothrombin Time (Protime)PT. 12.2 SECONDS (11.7-14.9)
[2022-10-28 06:44] LABS: ALB/GLOB Ratio 1.1 RATIO (0.9-2.4); AST(SGOT) 18 U/L (15-37); Alanine Aminotransfer ALT/SGPT 22 U/L (13-56); Albumin, Serum 3.2 g/dL (3.2-5.0); Alkaline Phosphatase 94 U/L (45-117); Anion Gap 4 (5-15); BUN 15 mg/dL (7-18); BUN/Creat Ratio 20.2 RATIO (10-20); Bilirubin, Direct 0.13 mg/dL (0.00-0.30); Calcium,Total 9.8 mg/dL (8.5-10.1); Chloride 112 mmol/L (98-107); Creatinine, Serum 0.74 mg/dL (0.55-1.02); EST Glomerular Filtration Rate 80 mL/min (>60); Est Glom Filt Rate - Afr Amer 97 mL/min (>60); Glucose 90 mg/dL (74-106); Magnesium 2.3 mg/dL (1.6-2.6); Phosphorus 2.6 mg/dL (2.5-4.9); Potassium 3.9 mmol/L (3.5-5.1); Protein, Total 6.2 g/dL (6.4-8.2); Sodium Level 142 mmol/L (136-145)
--- NOTE | 2022-10-28 09:03 | PN.HOSP_ITS ---
Reason for Visit Reason for Visit: Diagnoses Essential (primary) hypertension (10/27/22) Syncope and collapse (10/27/22) Subjective Subjective Patient symptomatic with orthostatics obtained, will repeat orthostats now that patient had some hydration, denies chest pain or shortness of breath Objective Data Objective Data Vital Signs: Vital Signs Temp Pulse Resp BP Pulse Ox O2 Del Method 97.9 F 61 16 112/56 L 98 Room Air 10/28/22 03:28 10/28/22 03:28 10/28/22 03:28 10/28/22 03:28 10/28/22 03:28 10/28/22 03:28 Oxygen Delivery Method Room Air Weight: 59.4 kg Body Mass Index (BMI) 23.1 Intake & Output: Intake and Output for Last 24 Hours 10/26/22 10/27/22 10/28/22 23:59 23:59 23:59 Intake Total 572.5 / 572.5 Balance 572.5 / 572.5 Lab / Micro Data 10/28/22 05:30 10/28/22 05:30 Labs: Laboratory Results - last 24 hr 10/27/22 13:06: WBC 2.4 L, RBC 4.54, Hgb 13.6, Hct 41.6, MCV 91.6, MCH 30.0, MCHC 32.7, RDW Std Deviation 47.9 H, RDW Coeff of Leatha 14.1, Plt Count 180, MPV 9.8, Immature Gran % (Auto) 0.000, Neut % (Auto) 43.3 L, Lymph % (Auto) 44.7 H, [place] % (Auto) 9.8, Eos % (Auto) 1.3, Baso % (Auto) 0.9, Absolute Neuts (auto) 1.0 L, Absolute Lymphs (auto) 1.05, Nucleated RBC % 0, D-Dimer Quant (PE/DVT) 0.51 H*, Sodium 140, Potassium 3.8, Chloride 108 H, Carbon Dioxide 27.0, Anion Gap 5, BUN 14, Creatinine 0.92, Estim Creat Clear Calc 37.93, Est GFR (MDRD) Af Amer 76, Est GFR (MDRD) Non-Af 63, BUN/Creatinine Ratio 15.3, Glucose 99, Calcium 10.4 H, Troponin I High Sens 31, B-Natriuretic Peptide 22.0, Folate 16.20, TSH 2.74, PTH Intact 129.6 H 10/27/22 19:37: Urine Color Yellow, Urine Clarity Clear, Urine pH 7.0, Ur Spec ific [place] 1.010, Urine Protein Negative, Urine Glucose (UA) Normal, Urine Ketones 5 H, Urine Occult Blood Negative, Urine Nitrite Negative, Urine Bilirubin Negative, Urine Urobilinogen Normal, Ur Leukocyte Esterase Negative, Urine RBC 0 SEEN, Urine WBC 0 SEEN, Ur Squamous Epith Cells 0 SEEN, Urine Bacteria 0 SEEN, Urine Mucus 0 SEEN 10/28/22 05:30: WBC 2.6 L, RBC 4.28, Hgb 13.0, Hct 39.3, MCV 91.8, MCH 30.4, MCHC 33.1, RDW Std Deviation 47.9 H, RDW Coeff of Leatha 14.1, Plt Count 166, MPV 10.3, Immature Gran % (Auto) 0.000, Neut % (Auto) 37.9 L, Lymph % (Auto) 47.5 H, [place] % (Auto) 11.8 H, Eos % (Auto) 2.0, Baso % (Auto) 0.8, Absolute Neuts (auto) 1.0 L, Absolute Lymphs (auto) 1.21, Nucleated RBC % 0, Diff Path Review August, PT 12.2, INR 0.9, Sodium 142, Potassium 3.9, Chloride 112 H, Carbon Dioxide 26.0, Anion Gap 4 L, BUN 15, Creatinine 0.74, Estim Creat Clear Calc 36.50, Est GFR (MDRD) Af Amer 97, Est GFR (MDRD) Non-Af 80, BUN/Creatinine Ratio 20.2 H, Glucose 90, Calcium 9.8, Phosphorus 2.6, Magnesium 2.3, Total Bilirubin 0.50, Direct Bilirubin 0.13, AST 18, ALT 22, Alkaline Phosphatase 94, Total Protein 6.2 L, Albumin 3.2, Globulin 3.0, Albumin/Globulin Ratio 1.1 Radiography Diagnostic Testing: Radiology Impression Chest X-Ray 10/27/22 12:39 IMPRESSION: No acute pulmonary process Electronically Signed: Adrien Marino MD at 13:45 EDT Reading Location ID and State: [facility] / [place] , Service support , Brain CT 10/27/22 15:52 IMPRESSION: Normal unenhanced CT scan of the brain. Electronically Signed: Javier Greer MD at 17:40 EDT , Rhythm Strip Rhythm Strip: Sinus Rhythm Rate: 70 Ectopy: PVC(s) and PAC(s) Physical Exam Narrative General: Alert, no apparent distress, poor historian HEENT: Atraumatic, normocephalic Eyes: Anicteric, normal conjunctiva, extraocular movements grossly intact Neck: Supple Respiratory: Clear to auscultation bilaterally, normal respiratory effort Cardiovascular: Regular rate and rhythm GI: Soft, nontender, nondistended Extremities: No edema Musculoskeletal: Moving all extremities Neuro: No overt focal neurological deficits Skin: No rashes appreciated Psych: Cooperative Assessment & Plan Assessment/Plan (1) Near syncope: (2) HTN (hypertension): (3) Syncope: PLAN: Plan #Syncope/near syncope- -admit to telemetry -EKG normal sinus rhythm, QTc 449 with left axis deviation -Orthostats ordered -Gentle hydration -Obtain echocardiogram -Troponin within normal limits, D-dimer 0.51 which is appropriate when adjusted for age -TSH 2.74 with a troponin of 31 -We will also obtain CT head and UA -Patient belatedly reported occasional dressed discomfort but had very difficult time with timeline or symptom description however did not sound worrisome for A CS and not presently having symptoms, monitor on telemetry -10/28: Positive orthostatic vital signs with blood pressure 155/67 while laying and 125/85 while standing and patient had symptoms of dizziness. Heart rate went from 65 up to 80. Patient's blood pressure medications remain on hold. UA negative. Patient received IVF overnight, will repeat orthostatics this a.m. Calcium improved with hydration. TSH 2.74, folate within normal limits. Will check AM cortisol. Also still awaiting echocardiogram #History of hypertension -We will hold amlodipine and losartan pending orthostats and clinical status -10/28: Positive orthostats as above, received fluids, hold hypertensives. Echocardiogram is ordered #Hypercalcemia -Certainly could be cause of some of the vague symptoms -Calcium 10.4, will order liver panel and adjust this for albumin -PTH, vitamin D, Phos ordered -Gentle hydration -10/28: Corrected calcium yesterday if taken to account patient's albumin today was 11 and with hydration is 10.4 based on a normal albumin of 4. PTH is elevated at 129.6. Thyroid function within normal limits, patient not on thiazide at home. Patient has had the problems with some abdominal pain, n ausea, constipation as well as fatigue and weakness which may indicate symptomatic hypercalcemia in patients can be symptomatic even at somewhat lower levels of hypercalcemia. Patient likely has CKD based on age and weight in comparison to creatinine even with that being less than 1 however not sure this would account for presentation/do not think this is CKD related and more likely primary hyperparathyroidism. Cannot rule out adrenal insufficiency however given her orthostatic hypotension's we will check cortisol in the a.m. Also check a random urine calcium. May ultimately need 24-hour urine calcium but this may not need to be done on an inpatient basis if patient stabilizes. Phos is lower limit of normal. And vitamin D was checked. #DVT ppx: Lovenox subcu Kamla Banuelos MD Time spent in the patient's overall evaluation,decision-making process, review of diagnostic data, adjustment of management, discussion with other providers, nursing nursing and ancillary staff involved in patient's care documentation, 51 minutes Charges/Coding Visit Charges Inpatient E&M: 27133 Subs Hosp L3
[2022-10-28 09:25] VITALS: BP 115/71; PULSE 70; RESP 16; TEMP 35.9; O2SAT 97
[2022-10-28] MEDS: 0.9% Saline Lock 10 ML Syringe IV (09:26)
[2022-10-28] MEDS: Enoxaparin 40 MG/0.4 ML Syringe SC (09:27)
[2022-10-28 09:45] VITALS: BP 103/61; BP 125/68; BP 141/62; PULSE 68; PULSE 72; PULSE 75
[2022-10-28] MEDS: 0.9% Normal Saline 1,000 ML 75 ML IV (10:00)
[2022-10-28 12:26] LABS: Urea Nitrogen, Urine 136 mg/dL (NO RANGE EST.); Urine Chloride 51 mmol/L (Not Establ.); Urine Sodium 54 mmol/L (Not Establ.)
[2022-10-28 12:29] LABS: Calcium, Urine (Random) 7.1 mg/dL (Not Estab.)
[2022-10-28 12:35] LABS: Osmolality, Urine 185 mOsm/KG
[2022-10-28 15:25] VITALS: BP 113/74; PULSE 67; RESP 16; TEMP 36.2; O2SAT 99
[2022-10-28 21:25] VITALS: BP 118/56; PULSE 74; RESP 16; TEMP 36.8; O2SAT 99
[2022-10-29] MEDS: 0.9% Normal Saline 1,000 ML 75 ML IV (02:43)
[2022-10-29 04:15] VITALS: BP 117/61; PULSE 66; RESP 16; TEMP 36.7; O2SAT 98
[2022-10-29 05:47] LABS: Absolute Lymphocyte Count 1.31 X10^3/uL (0.83-4.51); Absolute Neutrophil Count 1.6 X10^3/uL (2.0-7.7); Basophil# 0.02 X10^3/uL; Basophil% 0.6 % (0-1); Eosinophil# 0.04 X10^3/uL; Eosinophils% 1.2 % (0-5); Hematocrit 38.2 % (37-47); Hemoglobin 12.7 g/dL (12.0-15.0); Lymphocyte # 1.31 X10^3/ul (0.83-4.51); Mean Corp Hgb Conc 33.2 g/dL (32-36); Mean Corpuscular Hgb 30.6 pg (27.0-32.0); Mean Platelet Vol. 10.1 fl (6.2-12.0); Monocyte# 0.37 X10^3/uL; NRBC Flagged by Analyzer 0 % (0-5); Neutrophil # 1.61 X10^3/uL (2.7-7.7); Neutrophil % 47.9 % (47-70); Platelet Count 170 K/mm3 (150-450); RBC Distribution Width CV 14.1 % (11.6-14.6); RBC Distribution Width SD 48.3 fl (35.1-43.9); Red Blood Count 4.15 M/mm3 (4.2-5.4); White Blood Count 3.4 K/mm3 (4.4-11.0)
[2022-10-29 06:44] LABS: AST(SGOT) 17 U/L (15-37); Alanine Aminotransfer ALT/SGPT 18 U/L (13-56); Albumin, Serum 2.9 g/dL (3.2-5.0); Alkaline Phosphatase 83 U/L (45-117); Anion Gap 4 (5-15); BUN 15 mg/dL (7-18); BUN/Creat Ratio 21.5 RATIO (10-20); Calcium,Total 9.5 mg/dL (8.5-10.1); Chloride 114 mmol/L (98-107); EST Glomerular Filtration Rate 85 mL/min (>60); Est Glom Filt Rate - Afr Amer 103 mL/min (>60); Globulin 2.8 g/dL (2.2-4.2); Glucose 92 mg/dL (74-106); Potassium 3.8 mmol/L (3.5-5.1); Protein, Total 5.7 g/dL (6.4-8.2); Sodium Level 142 mmol/L (136-145)
[2022-10-29 06:52] VITALS: BP 135/58; PULSE 62; RESP 16; TEMP 36.9; O2SAT 95
--- NOTE | 2022-10-29 07:30 | PN.HOSP_ITS ---
Reason for Visit Reason for Visit: Diagnoses Essential (primary) hypertension (10/28/22) Syncope and collapse (10/28/22) Subjective Subjective Patient with no acute events overnight per self and per nursing report. She notes feeling markedly improved since initial ED arrival and denies any lightheadedness or dizziness and has been up without needing assistance. Discussed current work-up which including awaiting echocardiogram, unremarkable CT of the head, stable labs, normalized calcium and normal a.m. cortisol level fortunately. Discussed plan for repeat orthostatics which were performed and notably improved with plan for continued holding her hypertensive regimen as she has noted continued near syncopal/dizziness symptoms specifically following her hypertensive regimen and has felt improved if she skipped these. Discussed plan for close outpatient follow-up with repeat blood pressure assessments and resumption if appropriate and potentially lower dosing at that time if necessary. Patient denies fevers, chills, nausea, emesis, abdominal pain, chest pain or dyspnea. Objective Data Objective Data Vital Signs: Vital Signs Temp Pulse Resp BP Pulse Ox O2 Del Method 98.5 F 62 16 135/58 H 95 Room Air 10/29/22 06:52 10/29/22 06:52 10/29/22 06:52 10/29/22 06:52 10/29/22 06:52 10/29/22 06:52 Oxygen Delivery Method Room Air Weight: 130 lb 15.273 oz Body Mass Index (BMI) 23.1 Intake & Output: Intake and Output for Last 24 Hours 10/27/22 10/28/22 10/29/22 23:59 23:59 23:59 Intake Total 2532.5 / 2782.5 325 / 325 Balance 2532.5 / 2782.5 325 / 325 Lab / Micro Data 10/29/22 05:19 10/29/22 05:19 Labs: Laboratory Results - last 24 hr 10/28/22 11:35: Urine Osmolality 185, Ur Random Sodium 54, Ur Random Calcium 7.1, Urine Creatinine 15.50, Urine Potassium 14.0, Urine Chloride 51, Urine Urea Nitrogen 136 10/29/22 05:19: WBC 3.4 L, RBC 4.15 L, Hgb 12.7, Hct 38.2, MCV 92.0, MCH 30.6, MCHC 33.2, RDW Std Deviation 48.3 H, RDW Coeff of Leatha 14.1, Plt Count 170, MPV 10.1, Immature Gran % (Auto) 0.300, Neut % (Auto) 47.9, Lymph % (Auto) 39.0, [place] % (Auto) 11.0 H, Eos % (Auto) 1.2, Baso % (Auto) 0.6, Absolute Neuts (auto) 1.6 L, Absolute Lymphs (auto) 1.31, Nucleated RBC % 0, Sodium 142, Potassium 3.8, Chloride 114 H, Carbon Dioxide 24.0, Anion Gap 4 L, BUN 15, Creatinine 0.7 0, Estim Creat Clear Calc 36.50, Est GFR (MDRD) Af Amer 103, Est GFR (MDRD) Non- Af 85, BUN/Creatinine Ratio 21.5 H, Glucose 92, Calcium 9.5, Total Bilirubin 0.50, AST 17, ALT 18, Alkaline Phosphatase 83, Total Protein 5.7 L, Albumin 2.9 L, Globulin 2.8, Albumin/Globulin Ratio 1.0 Rhythm Strip Rhythm Strip: Sinus Rhythm Rate: 70 Ectopy: PVC(s) and PAC(s) Physical Exam Narrative Physical Examination: General: Awake, alert, oriented x 3 and cooperative, seated upright in PCU bed in no apparent distress, notes feeling well and denies any lightheadedness or dizziness sensation. Skin: Normal color, normal turgor, no icterus, no cyanosis. HEENT: AT/NC, EOMI, PERRLA, MMM. Lungs: CTA bilaterally, moderate effort, mild decrease BL bases, no rales, ronchi or wheezing. Heart: Regular rate and rhythm; no gallop, rub audible. Abdomen: Soft, NTTP, ND, normal BS. Extremities: No cyanosis, clubbing, or edema. Neurological: Patient awake, alert, oriented as noted, cognitive function intact; pupils equally reactive to light and accommodation, cranial nerves II- XII grossly normal, moving all 4 extremities, no focal deficits, strength preserved. Psychiatric: Affect appears normal, no acute evidence of depressive or anxiety feelings. Assessment & Plan Assessment/Plan (1) Syncope: PLAN: Plan The patient is an 82 y/o F w/ PMHx: HTH who presents to [facility] ED [facility] 10/27/22 with intermittent episodes of dizziness and lightheadedness over the last 2 months with associated syncopal event prompting eventual ED evaluation. #1. Intermittent near syncope and syncopal event with orthostasis: Admitted to telemetry, EKG with sinus rhythm with QTc 449 with left axis deviation, judiciously hydrated with orthostatics monitor, echocardiogram requested, troponin level normal, D-dimer 0.51 normal for age adjustment, TSH 2.74, CT of head with no acute intracranial findings, chest x-ray with no acute cardiopulmonary finding, no marked electrolyte disturbances, urine osmolality 185, urine random sodium 54, urine random calcium 7.1, urine creatinine 15.50, urine potassium 14, urine chloride 51, urine urea nitrogen 136, maintain on fall precautions. Orthostatics last + 10/29/2019 3 AM, 10/30/2019 3 repeat this a.m improving with continued hold on hypertensive regimen. Patient has admitted that she has held these occasionally secondary to symptoms which have onset following specifically taking these medications. Cortisol normal level this morning. Vitamin B12 596 and vitamin D 25-hydroxy 58.8 consistent with insufficiency with start on 25 mcg once daily with recommended follow-up level recheck with PCP and continued monitoring of calcium as initial concern for altered levels upon presentation which normalized. Awaiting echocardiogram and if no marked findings would plan discharge to home. #2. Hypercalcemia, normalized: Initial admission calcium 10.4, judiciously hydrated with repeat calcium 10/28/2022 9.8 and 10/29/2022 9.5, a.m. cortisol level normal, urine osmolality 185, urine random sodium 54, urine random calcium 7.1, urine creatinine 15.50, urine potassium 14, urine chloride 51, urine urea nitrogen 136. #3. Hypertension: Given orthostasis holding hypertensive regimen, BP has been normal range since hold, continue to monitor with plan for continue to hold at discharge as patient does admit to symptoms specifically following taking her blood pressure medications outpatient and improvement when she has missed these or skipped them purposefully with planned reassessment outpatient with PCP and reinitiation with a lower dose at that time if necessary. #4. DVT prophylaxis: Lovenox. #5. CODE STATUS: Full code. Charges/Coding Visit Charges Inpatient E&M: 68258 Init Hosp L2
[2022-10-29 07:57] VITALS: BP 131/85; BP 149/76; BP 149/82; PULSE 70; PULSE 72; PULSE 86
[2022-10-29 08:05] VITALS: RESP 16; TEMP 36.3; O2SAT 98
[2022-10-29 08:27] LABS: Vitamin B12 596 pg/mL (211-911); Vitamin D,25 Hydroxy 58.8 ng/mL
--- NOTE | 2022-10-29 10:58 | PCM.DC.SUM ---
Providers Date of Admission: 10/28/22 Date of Discharge: 10/29/22 Primary Care Physician: Dr. Breanna David DO Reason For Visit: SYNCOPE Diagnosis Discharge Diagnosis (1) Syncope: Status: Acute Code(s): R55 - Syncope and collapse Plan: Discharge Diagnoses: #1. Intermittent near syncope and syncopal event with orthostasis #2. Vitamin D insufficiency #2. Concern initially Hypercalcemia, normalized #3. Hypertension Medications at Discharge Home Medications cholecalciferol (vitamin D3) 25 mcg (1,000 unit) tablet 25 mcg PO DAILY 30 days #30 tabs 10/29/22 Hospital Course Operations None Procedures EKG and Transesophageal Echo Summary of Care Provided Minutes Spent on Discharge: 35 Hospital Course: The patient is an 82 y/o F w/ PMHx: HTN who presents to the [facility] ED on 10/27/22 with intermittent episodes of dizziness and lightheadedness over the last 2 months with associated syncopal event prompting eventual ED evaluation. Admitted to telemetry, EKG with sinus rhythm with QTc 449 with left axis deviation, judiciously hydrated with orthostatics monitor, troponin level normal, D-dimer 0.51 normal for age adjustment, TSH 2.74, CT of head with no acute intracranial findings, chest x-ray with no acute cardiopulmonary finding, no marked electrolyte disturbances, urine osmolality 185, urine random sodium 54, urine random calcium 7.1, urine creatinine 15.50, urine potassium 14, urine chloride 51, urine urea nitrogen 136, maintain on fall precautions. Orthostatics last + 10/29/2019 3 AM, 10/30/2019 3 repeat improving with continued hold on hypertensive regimen. Cortisol normal level. Vitamin B12 596 and vitamin D 25-hydroxy 58.8 consistent with insufficiency with start on 25 mcg once daily. Echocardiogram with normal LV size, normal LV systolic function, EF 60%, stage I diastolic dysfunction, PASP 36 mmHg. Initial admission calcium 10.4, judiciously hydrated with repeat calcium 10/28/2022 9.8 and 10/29/2022 9.5, a.m. cortisol level normal, urine osmolality 185, urine random sodium 54, urine random calcium 7.1, urine creatinine 15.50, urine potassium 14, urine chloride 51, urine urea nitrogen 136. Given orthostasis held hypertensive regimen, BP primarily normal range. Will hold your regimen at discharge given your improvement in symptoms and improvement of orthostasis with only judicious IV fluids as well as the fact patient was occasionally not taking her medications and felt improved recommended continued outpatient BP assessments and reinitiation of regimen at a lower dose potentially or only a single agent if necessary at PCP follow-up. Weight / BMI Weight Weight: 130 lb 15.273 oz Body Mass Index (BMI) 23.1 ABG / Lab / Microbiology Data 10/29/22 05:19 10/29/22 05:19 Laboratory: Laboratory Results - last 24 hr 10/27/22 16:15: Vitamin B12 596, Vitamin D 25-Hydroxy 58.8 10/28/22 11:35: Urine Osmolality 185, Ur Random Sodium 54, Ur Random Calcium 7.1, Urine Creatinine 15.50, Urine Potassium 14.0, Urine Chloride 51, Urine Urea Nitrogen 136 10/29/22 05:19: WBC 3.4 L, RBC 4.15 L, Hgb 12.7, Hct 38.2, MCV 92.0, MCH 30.6, MCHC 33.2, RDW Std Deviation 48.3 H, RDW Coeff of Leatha 14.1, Plt Count 170, MPV 10.1, Immature Gran % (Auto) 0.300, Neut % (Auto) 47.9, Lymph % (Auto) 39.0, [place] % (Auto) 11.0 H, Eos % (Auto) 1.2, Baso % (Auto) 0.6, Absolute Neuts (auto) 1.6 L, Absolute Lymphs (auto) 1.31, Nucleated RBC % 0, Sodium 142, Potassium 3.8, Chloride 114 H, Carbon Dioxide 24.0, Anion Gap 4 L, BUN 15, Creatinine 0.70, Estim Creat Clear Calc 36.50, Est GFR (MDRD) Af Amer 103, Est GFR (MDRD) Non-Af 85, BUN/Creatinine Ratio 21.5 H, Glucose 92, Calcium 9.5, Total Bilirubin 0.50, AST 17, ALT 18, Alkaline Phosphatase 83, Total Protein 5.7 L, Albumin 2.9 L, Globulin 2.8, Albumin/Globulin Ratio 1.0, Cortisol 19.20 Radiography Diagnostic Testing: Radiology Impression Echocardiogram 10/27/22 15:52 Interpretation Summary Normal LV size. Left ventricular systolic function is normal. The estimated ejection fraction is 60 %. Stage 1 diastolic dysfunction. Pulmonary artery systolic pressure is 36 mmHg. Ordering Physician: Kamla Banuelos Referring Physician: Breanna David M.D. Performed By: Noa Tabor RCS D/C Instructions Discharge Diet: Low fat / Low cholesterol May resume sexual activity in: No Restrictions Weight Bearing Status: Weight bearing as tolerated Call your doctor if you observe: Fever of 101 or Higher, Numbness or Tingling, Inability to urinate, Shortness of breath, Dizziness, Fainting spells, Swelling in the ankles, Chest pain, Increased palpitations (irregular heartbeat) and Uncontrolled pain Meaningful Use Info Meaningful Use Diagnoses (Choose all that apply): None applicable Discharge Plan Admission Admit Date/Time: 10/28/22 18:47 Primary Reason for Your Visit: Syncope/Near Syncope with Orthostasis, Vitamin D Deficiency Attending Provider: Neha Helton Primary Care Provider: Breanna David Consulting Providers: Kamla Banuelos Instructions Additional Instructions / Restrictions: ADDITIONAL DISCHARGE INFORMATION/INSTRUCTIONS: #1. Intermittent near syncope and syncopal event with orthostasis: Admitted to telemetry, EKG with sinus rhythm with QTc 449 with left axis deviation, judiciously hydrated with orthostatics monitor, troponin level normal, D-dimer 0.51 normal for age adjustment, TSH 2.74, CT of head with no acute intracranial findings, chest x-ray with no acute cardiopulmonary finding, no marked electrolyte disturbances, urine osmolality 185, urine random sodium 54, urine random calcium 7.1, urine creatinine 15.50, urine potassium 14, urine chloride 51, urine urea nitrogen 136, maintain on fall precautions. Orthostatics last + 10/29/2019 3 AM, 10/30/2019 3 repeat improving with continued hold on hypertensive regimen. Cortisol normal level. Vitamin B12 596 and vitamin D 25-hydroxy 58.8 consistent with insufficiency with start on 25 mcg once daily. Echocardiogram with normal LV size, normal LV systolic function, EF 60%, stage I diastolic dysfunction, PASP 36 mmHg. #2. Vitamin D insufficiency: Vitamin D level obtained during admission 58.8 consistent with insufficiency, started on 25 mcg supplementation daily with recommended repeat level with PCP outpatient. #2. Concern initially Hypercalcemia, normalized: Initial admission calcium 10.4, judiciously hydrated with repeat calcium 10/28/2022 9.8 and 10/29/2022 9.5, a.m. cortisol level normal, urine osmolality 185, urine random sodium 54, urine random calcium 7.1, urine creatinine 15.50, urine potassium 14, urine chloride 51, urine urea nitrogen 136. #3. Hypertension: Given orthostasis held hypertensive regimen, BP primarily normal range. Will hold your regimen at discharge given your improvement in symptoms and improvement of orthostasis with only judicious IV fluids as well as admission that you have occasionally not taking her medications and felt improved with recommended continued outpatient BP assessments and reinitiation of regimen at a lower dose potentially or only a single agent if necessary at PCP follow-up. Discharge Orders/Prescriptions Prescriptions: New cholecalciferol (vitamin D3) 25 mcg (1,000 unit) Tablet 25 mcg PO DAILY 30 Days Qty: 30 0RF Discontinued amlodipine 5 mg tablet 5 mg PO DAILY Patient Comments: TAKE 1 TABLET BY MOUTH EVERY DAY losartan 100 mg tablet 100 mg PO DAILY Patient Comments: TAKE 1 TABLET BY MOUTH EVERY DAY Referrals / Follow Up: Breanna David DO [Primary Care Provider] - (Follow-up within 3-5 days to review admission/medication changes.) Disposition Disposition (needs filled in before D/C Order can be placed): Home, Self Care Charges/Coding Visit Charges Inpatient E&M: 23115 Disch Hosp >30min
--- NOTE | 2022-10-29 11:00 | CASEMGMT ---
TERRA STEEN Discharge Planning Assessment: Face to Face with patient for initial transition planning/care coordination assessment.?TERRA STEEN introduced self and role at [facility], pt alert, oriented x4, voices understanding and is agreeable to participating in assessment.? Care providers, pharmacy,?and demographics verified. ? Admitting dx: syncope PCP: Joann Specialists: none Preferred Pharmacy: [facility] Insurance: MCR A/B, [employer] secondary Prescription Benefit:?yes Living Will/HPOA: yes/HPOA Issac Sanders LNOK: spouse Chester Living Arrangements: Pt lives with her spouse in a single story home with two small steps to enter. Pt states she is independent with ADLs including self care and household tasks. 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 Transportation: Pt drives and denies any transportation concerns DME/HHC/SNF: denies any currently or previous providers ? Plan: Pt plans to return home with the support of her at discharge. Pt denies any discharge needs at this time or concerns. Will continue to monitor and assist with further DC needs as identified. Ponce Martin RN CM
--- NOTE | 2022-10-29 11:42 | PHA.DC.MC.R ---
Pharmacy [facility] Pharmacy Service has performed discharge medication reconciliation and counseling for this patient. 1. CHOLECALCIFEROL 25MCG PO DAILY The patient's discharge medication list was reviewed for discrepancies and discrepancies were resolved. The patient was counseled on the following discharge medications and changes in medications for homegoing were reviewed. The Reason for Use, instructions for use, and potential side effects were reviewed for all new medications. The patient's questions regarding all of their medications were answered. The patient was able to verbally demonstrate an understanding of their discharge medications. Patient counseled by pharmacy service associateMathieu. Medications at Discharge Home Medications cholecalciferol (vitamin D3) 25 mcg (1,000 unit) tablet 25 mcg PO DAILY 30 days #30 tabs 10/29/22
[2022-10-30 09:53] LABS: Pathologist Review Reviewed
== END 2022-10-29 12:01 | disposition home or self-care (01) | DRG 312 ==
LOC: ED 14:48 → PCU 15:48
PROVIDERS: Admitting Provider Internal Medicine; Emergency Provider Emergency Medicine; PCP Internal Medicine; Visit Provider Family Medicine
DX: I95.1 Orthostatic hypotension (principal); E55.9 Vitamin D deficiency, unspecified; I12.9 Hypertensive chronic kidney disease with stage 1 through stage 4 chronic kidney disease, or unspecified chronic kidney disease; N18.9 Chronic kidney disease, unspecified; Z79.899 Other long term (current) drug therapy
CPT/HCPCS: 36415; 70450; 71045; 80048; 80053; 81001; 82248; 82306; 82340; 82436; 82533; 82570; 82607; 82746; 83735; 83880; 83935; 83970; 84100; 84133; 84300; 84443; 84484; 84540; 85025; 85379; 85610; 93005; 93306; 97802; 99285; J7030; A4216

== ENCOUNTER → 2023-01-14 | Outpatient (CLI) | payer MEDICARE, OTHER, SELFPAY ==
--- NOTE | 2023-01-14 07:23 | BI_ITS ---
MAMMOGRAPHY - BILATERAL SCREENING REASON FOR EXAM: Female, 82 years old. Routine annual screening examination. PERTINENT HISTORY: Non-contributory. Chronic bilateral nipple inversion. TECHNIQUE: Digital bilateral breast adri (3D mammographic acquisition) in the CC and MLO projections. 2-D mediolateral oblique (MLO) and craniocaudad (CC) views of both breasts were obtained. CAD: Full Field Digital Mammography with Computer Added Detection was performed. COMPARISON: Comparison is made with prior study January 09, 2022 and December 19, 2020. FINDINGS: Breast Composition: There are scattered areas of fibroglandular density. There are no dominant masses or suspicious calcifications. Stable small benign-appearing bilateral axillary lymph nodes. No other significant abnormalities are identified. There has been no significant change since the prior study. BI/SCRN MAMM (CAD)W/ADRI BILAT IMPRESSION: Stable bilateral screening mammogram. Yearly follow-up mammogram recommended. (A) ASSESSMENT CATEGORY: BIRADS Category 2: Benign. A letter regarding these results will be sent to the patient by the facility within 30 days. Approximately 10% of breast cancers are not detected by mammography. A normal mammogram should not delay biopsy of a clinically suspicious abnormality. [id number] Electronically Signed: Gary Green MD at 12:35 EDT ,
== END | disposition home or self-care (01) ==
LOC: OPBI 07:22
PROVIDERS: PCP Internal Medicine; Referring Provider Internal Medicine; Visit Provider Internal Medicine
DX: Z12.31 Encounter for screening mammogram for malignant neoplasm of breast (principal)
CPT/HCPCS: 77063; 77067

== ENCOUNTER → 2024-02-05 | Outpatient (CLI) | payer MEDICARE, OTHER, SELFPAY ==
--- NOTE | 2024-02-05 10:24 | BI_ITS ---
MAMMOGRAPHY - BILATERAL SCREENING REASON FOR EXAM: Female, 83 years old. Routine annual screening examination. PERTINENT HISTORY: Non-contributory. History of persistent bilateral nipple inversion. TECHNIQUE: Digital bilateral breast adri (3D mammographic acquisition) in the CC and MLO projections. 2-D mediolateral oblique (MLO) and craniocaudad (CC) views of both breasts were obtained. CAD: Full Field Digital Mammography with Computer Added Detection was performed. COMPARISON: Comparison is made with prior study dated January 14, 2023 and January 09, 2022. FINDINGS: Breast Composition: There are scattered areas of fibroglandular density. There are no dominant masses or suspicious calcifications. Stable small benign-appearing bilateral axillary lymph nodes. No other significant abnormalities are identified. There has been no significant change since the prior study. BI/SCRN MAMM (CAD)W/ADRI BILAT IMPRESSION: Stable bilateral screening mammogram. Yearly follow-up mammogram recommended. (A) ASSESSMENT CATEGORY: BIRADS Category 2: Benign. A letter regarding these results will be sent to the patient by the facility within 30 days. Approximately 10% of breast cancers are not detected by mammography. A normal mammogram should not delay biopsy of a clinically suspicious abnormality. [id number] Electronically Signed: Gary Green MD at 11:33 EDT ,
--- NOTE | 2024-02-05 10:28 | BD_ITS ---
STUDY: DUAL ENERGY X-RAY ABSORPTIOMETRY / DXA REASON FOR EXAM: Female, 83 years old. 627.8Menopausal postmenopausal BONE DENSITY REASON FOR EXAM -- Postmenopausal status TECHNIQUE: Bone Mineral Density (BMD) measurements of lumbar spine and bilateral hips were obtained. COMPARISON: Comparison is made with prior study dated January 09, 2022. FINDINGS: Lumbar Spine (L1-L4): g/cm2 (0.802) / T-score (-2.0) / Z-score (0.7) Findings are suggestive of osteopenia with a moderate fracture risk. Left Femur Total: g/cm2 (0.705) / T-score (-1.9) / Z-score (0.3) Left Femoral Neck: g/cm2 (0.633) / T-score (-1.9) / Z-score (0.5) Right Femur Total: g/cm2 (0.670) / T-score (-2.2) / Z-score (0.0) Right Femoral Neck: g/cm2 (0.607) / T-score (-2.2) / Z-score (0.2) The T-Scores on the most recent prior examination were: Lumbar Spine (L1-L4): There has been worsening of bone density since the previous examination. Left Femur Total: which represents a worsening of 4%. Right Femur Total: which represents a worsening of 7.9%. BD/Dexa Bone Density Study IMPRESSION: The patient is considered osteopenic as outlined below according to World Marco Organization (WHO) criteria with a high fracture risk. There has been worsening of bone density since the previous examination. Reference Information: The T-score is the number of standard deviations above or below the standard which is normal for young adults at their peak bone mineral density. The World Health Organization (WHO) interprets the T-scores as follows: Above -1 Normal bone density Between -1 and -2.5 Osteopenia Equal to / or below -2.5 Osteoporosis As a practical clinical guideline, osteopenia may be graded as follows: Mild -1 through -1.5 Moderate -1.6 through -2.0 Severe -2.1 through -2.4 The Z-score is the number of standard deviations above or below age-matched controls. A Z-score of less than -1.5 would be considered abnormal. References: 1. NIH Osteoporosis and Related Bone Diseases www osteo.org 2. International Society for Clinical Densitometry www iscd.org 3. National Osteoporosis Foundation www nof.org Electronically Signed: Gary Green MD at 12:39 EST ,
== END | disposition home or self-care (01) ==
LOC: OPBD 10:24
PROVIDERS: PCP Internal Medicine; Referring Provider Internal Medicine; Visit Provider Internal Medicine
DX: Z13.820 Encounter for screening for osteoporosis (principal); Z78.0 Asymptomatic menopausal state; Z12.31 Encounter for screening mammogram for malignant neoplasm of breast
CPT/HCPCS: 77063; 77067; 77080

== ENCOUNTER → 2025-03-01 | Outpatient (CLI) | payer MEDICARE, OTHER, SELFPAY ==
[2025-03-01 09:15] LABS: Hematocrit 43.6 % (37-47); Hemoglobin 14.3 g/dL (12.0-15.0); Immature Granulocytes Count 0.010 X10^3/uL (0.0-0.0); Mean Corp Hgb Conc 32.8 g/dL (32-36); Mean Corpuscular Volume 92.0 fL (81-99); Mean Platelet Vol. 9.7 fl (6.2-12.0); NRBC Flagged by Analyzer 0 % (0-5); Platelet Count 227 K/mm3 (150-450); RBC Distribution Width CV 14.1 % (11.6-14.6); RBC Distribution Width SD 47.6 fl (35.1-43.9); Red Blood Count 4.74 M/mm3 (4.2-5.4); White Blood Count 3.9 K/mm3 (4.4-11.0)
[2025-03-01 09:58] LABS: AST(SGOT) 24 U/L (<=31); Alanine Aminotransfer ALT/SGPT 14 U/L (<=34); Albumin, Serum 4.2 g/dL (3.4-4.8); Alkaline Phosphatase 79 U/L (35-104); Anion Gap 8 (5-15); BUN 21 mg/dL (4-19); BUN/Creat Ratio 21.9 RATIO (10-20); Calcium,Total 10.8 mg/dL (7.6-11.0); Carbon Dioxide 27.7 mmol/L (21.0-32.0); Chloride 105 mmol/L (98-108); Cholesterol 238 mg/dL (<=200); Globulin 2.8 g/dL (2.2-4.2); Glucose 95 mg/dL (70-99); Low Density Lipoprotein Calc. 117 mg/dL; Potassium 4.4 mmol/L (3.3-5.1); Triglycerides 98 mg/dL; Very Low Density Lipoprotein 20 mg/dL (5-40); Vitamin D,25 Hydroxy 63.7 ng/mL (30-100); cholesterol:hdl ratio screen 2.27
== END | disposition home or self-care (01) ==
LOC: LAB 08:32
PROVIDERS: PCP Internal Medicine; Referring Provider Internal Medicine; Visit Provider Internal Medicine
DX: I10 Essential (primary) hypertension (principal); E03.9 Hypothyroidism, unspecified; E55.9 Vitamin D deficiency, unspecified
CPT/HCPCS: 36415; 80053; 80061; 82306; 84443; 85025